=== PATIENT | female | born 1980 | race Caucasian/White ===

== ENCOUNTER 2017-06-19 15:05 | Emergency (ER) | payer OTHER ==
[~2017-06-19] VITALS: Ht 168.9 cm; Wt 100.8 kg
[~2017-06-19 15:05] MED LIST: ATR25 PO; BND25X PO; BSP5 PO; CHLO100T8 PO; CHLO1TAB15 PO; CLC100 PO; CLON1TAB3 PO; DPKSR250 PO; ESCI10TA17 PO; GABA-112 PO; LAMO100T16 PO; NYSSO PO; POLY99.02 OP; PROP10TA7 PO; QUET-205 PO; TOPI25TA99 PO; ZFRODT4 SL
[2017-06-19 15:07] VITALS: TEMP 37; Ht 168.9 cm; Wt 100.8 kg
[2017-06-19] MEDS ORDERED: IBUP-103 PO (15:43)
[2017-06-19] MEDS ORDERED: ARIP1TAB8 PO (15:43)
--- NOTE | 2017-06-19 15:58 | DIAGNOSTIC IMAGING REPORT ---
R KNEE 3 VIEWS CLINICAL HISTORY: Right knee pain following twisting injury. COMPARISON: None FINDINGS: Alignment of the right knee is anatomic. There is no acute fracture or joint effusion. Joint spaces are preserved. No osseous lesion is identified. IMPRESSION: No acute fracture or joint effusion of the right knee. Electronically signed by: Tamir Tinajero M.D. 06/19/2017 3:56 PM Dictated Date/Time: 06/19/2017 3:56 PM
[2017-06-19 16:16] VITALS: BP 120/48; PULSE 80; O2SAT 98
--- NOTE | 2017-06-20 01:26 | EMERGENCY ROOM VISIT NOTE ---
ED Visit Note First contact with patient: 15:14 Chief Complaint: I'm having right knee pain. History of Present Illness: Ms. Martínez is a 37 year-old white female who ambulates into the ED accompanied by a male friend complaining of anterior right knee pain. Patient reports approximately 2 weeks ago she was unloading a truck at work. She reports she was coming down off the truck and twisted her right knee. She reported she had mild pain and she took ibuprofen with relief of her discomfort. She then reported she did the same process approximately one week ago. She noted some mild pain in the knee initially and over the last week the pain has gradually increased in intensity. She describes her pain as a pressure and occasional throbbing sensation. She places her discomfort initially over the patellar tendon then radiating up the lateral aspect of the knee into the thigh and there is radiation down the anterior lower leg. She rates her discomfort 7/10. Her pain worsens with palpation, flexion beyond 90, hyperextension and ambulation. She has not identified any alleviating factors related to the pain. She reports that she has been taking up to 1400 mg of ibuprofen without relief of her discomfort. Associated with her pain she reports that she has been feeling clicking and popping when she bends her knee. She denies any associated back pain, hip pain , previous significant injuries or surgeries to the knee, leg weakness/numbness/ tingling, fevers, chills, sweats, skin eruptions, skin color changes. Review of Systems: As noted above in history of present illness. 8 body systems were reviewed and found to be negative as noted above. Past Medical History: Epilepsy, status post tonsillectomy, tubal ligation. Current Medications: Lamictal, Abilify. Allergies to Medications: Penicillin, Demerol, Darvocet, clindamycin, ciprofloxacin, acetaminophen, Ultram. Social History: Patient is currently employed; she feels safe in her home environment; she admits to tobacco and alcohol use. Physical Examination: Vital Signs: Date Time Temp Pulse Resp B/P (MAP) Pulse Ox O2 Delivery O2 Flow Rate FiO2 06/19/17 16:16 80 18 120/48 98 06/19/17 15:07 37.0 81 18 114/74 98 Room Air GENERAL: 37-year-old female in mild to moderate distress due to pain, nontoxic- appearing, afebrile and hemodynamically stable. NEUROLOGICAL: Awake, alert and oriented to person, place and time. Answering questions appropriately and following commands. Good hand eye coordination. No focal motor sensory deficits. SKIN: Warm, dry and pink. No soft tissue eruptions or trauma noted. RIGHT LOWER EXTREMITY: No gross bony deformity. No shortening or malrotation. No tenderness in the hip, thigh, ankle, foot. Tenderness over the patellar tendons and the anterior knee just lateral to the patella. Mild patellar tenderness without apprehension. Negative ballottement test. There is mild diffuse swelling over the anterior knee without erythema or warmth. No laxity of the collateral cruciate ligaments. Positive bounce test. Decreased range of motion to 90 due to pain. Meniscus testing was deferred. 5/5 muscle strength in flexion and extension of the knee and plantar flexion and dorsiflexion of the ankle. Distal pulses are intact. Capillary refill is brisk. She was able to distinguish light sensations through all dermatomes. No calf tenderness or cords. ED Course: Patient is assessed as noted above. Patient's medication list was reviewed. Right Knee X-Rays: Were read by myself and the radiologist showing no acute fractures or dislocations. No joint effusion. No previous to compare. Patient was placed in a knee immobilizer and on nonweightbearing crutches. I did give patient appropriate warnings about excessive use of ibuprofen and possible complications. Patient was educated about today's findings and instructed on her treatment plan ; she verbalized understanding and agreement with this plan. Clinical Impression: Right anterior knee pain. Work related injury. Decision-Making: Initially my differential diagnosis I considered tendinitis, bursitis, ligamentous sprain of the collateral or cruciate ligaments, meniscus tear and other causes. Disposition: Patient discharged home in stable condition accompanied by her fiance; prior to departure she was reassessed and subjectively reported she was feeling the same and rated her discomfort 7/10. Plan: Patient is encouraged to use appropriate amounts of ibuprofen every 6 hours as needed for pain. Patient was encouraged use ice for pain and swelling. Patient is encouraged to use knee immobilizer and nonweightbearing crutches for 3-6 days or until pain free. Patient was encouraged to follow-up at [employer] for recheck if no better in 7-10 days. Patient was encouraged return ED for worsening symptoms and pain, swelling or any leg weakness/numbness/tingling.
== END 2017-06-19 16:20 | disposition home or self-care (01) ==
LOC: C.EDB 15:08 → C.EDD 16:20
DX: M25.561 Pain in right knee (principal); Y99.0 Civilian activity done for income or pay; G40.909 Epilepsy, unspecified, not intractable, without status epilepticus; F17.200 Nicotine dependence, unspecified, uncomplicated